=== PATIENT | male | born 2000 | race African-American/Black ===

== ENCOUNTER 2025-01-29 18:22 | Emergency (ER) | payer BC ==
[~2025-01-29] VITALS: Ht 170.2 cm; Wt 84.0 kg
[2025-01-29 18:26] VITALS: O2SAT 98
[2025-01-29 18:31] VITALS: TEMP 36.8; O2SAT 97
[2025-01-29] MEDS ORDERED: NAPR-1486 MT (20:07)
[2025-01-29] MEDS ORDERED: LIDO-53 TP (20:07)
[2025-01-29] MEDS ORDERED: GABA-529 MT (20:07)
[2025-01-29 20:08] VITALS: PULSE 89
[2025-01-29] MEDS: KETOROLAC 30MG/ML VIAL IM ONE (20:08)
[2025-01-29 20:15] VITALS: BP 120/75; RESP 19
[2025-01-29] MEDS: LIDOCAINE 5% PATCH TOP SCH (20:15)
== END 2025-01-29 20:50 | disposition home or self-care (01) ==
LOC: ER 18:22
DX: M54.50 Low back pain, unspecified (principal); Z79.899 Other long term (current) drug therapy; Z79.1 Long term (current) use of non-steroidal anti-inflammatories (NSAID)
CPT/HCPCS: 99283; 96372; J1885